=== PATIENT | male | born 1975 | race Hispanic/Latino ===

== ENCOUNTER 2019-06-21 09:38 | Emergency (ER) | payer SELFPAY ==
[2019-06-21] MEDS ORDERED: Ketorolac Tromethamine 30 MG/ML VIAL ONE (09:49)
--- NOTE | 2019-06-21 10:14 | RAD ---
Exam: Left index finger 3 views: HISTORY: Pain following injury FINDINGS: Slightly irregular transverse fracture through the distal tuft of the distal phalanx of the index fin kamila with soft tissue swelling. IMPRESSION: Transverse fracture distal phalanx index finger.
== END 2019-06-21 11:07 | disposition home or self-care (01) ==
LOC: ERS 09:38
DX: S62.630A Displaced fracture of distal phalanx of right index finger, initial encounter for closed fracture (principal); W20.8XXA Other cause of strike by thrown, projected or falling object, initial encounter
CPT/HCPCS: 11740; 96372; J1885